=== PATIENT | female | born 1975 | race African-American/Black ===

== ENCOUNTER 2021-12-03 21:23 | Emergency (ER) | payer MEDICAID ==
[~2021-12-03] VITALS: Ht 170.2 cm; Wt 149.2 kg
[~2021-12-03 21:23] MED LIST: INSLANTI SC
[2021-12-04] MEDS ORDERED: LIDOCAINE 1%HCL (LOCAL ANESTH) 10 ML MDV ONE (04:51)
[2021-12-04 05:00] VITALS: BP 125/81
[2021-12-04] MEDS ORDERED: LIDOCAINE HCL 1 % PF INJ 2ML AMP IJ ONE (05:00)
== END 2021-12-04 05:30 | disposition home or self-care (01) ==
LOC: ER 21:23
DX: L02.212 Cutaneous abscess of back [any part, except buttock and flank] (principal); E11.9 Type 2 diabetes mellitus without complications; Z79.4 Long term (current) use of insulin
CPT/HCPCS: 10060; 87205; 99283; J2001; 87077; 87186

== ENCOUNTER 2022-01-15 01:36 | Emergency (ER) | payer MEDICAID ==
[~2022-01-15] VITALS: Ht 170.2 cm; Wt 144.7 kg
[2022-01-15] MEDS ORDERED: KETOROLAC TROMETH 60MG/2ML VIAL IM ONE (07:15)
[2022-01-15] MEDS ORDERED: HYDROcodone-ACET 5/325MG TAB PO ONE (08:00)
[2022-01-15 11:37] VITALS: BP 103/44
== END 2022-01-15 11:39 | disposition home or self-care (01) ==
LOC: EDBD 01:36 → ER 01:36 → EDUNIT# 01:36 → ER 11:38
DX: M54.6 Pain in thoracic spine (principal); R07.9 Chest pain, unspecified; M54.2 Cervicalgia; E11.9 Type 2 diabetes mellitus without complications; M79.18 Myalgia, other site; V43.62XA Car passenger injured in collision with other type car in traffic accident, initial encounter; Y93.89 Activity, other specified; Y92.488 Other paved roadways as the place of occurrence of the external cause; Y99.8 Other external cause status
CPT/HCPCS: 71046; 71120; 72040; 72170; 93005

== ENCOUNTER 2023-04-22 08:20 | Emergency (ER) | payer MEDICAID ==
[~2023-04-22] VITALS: Ht 170.2 cm; Wt 142.8 kg
[2023-04-22 10:02] VITALS: BP 136/67; RESP 20; TEMP 98.8; O2SAT 98
[2023-04-22 10:47] LABS: Alanine Aminotransferase 10 U/L (7-40); Albumin 4.1 g/dL (3.2-4.8); Alkaline Phosphatase 83 U/L (46-116); Anion Gap 8.6 (5-15); Aspartate Aminotransferase < 8 U/L (13-40); BUN/Creatinine Ratio 15.2 (10.0-20.0); Blood Urea Nitrogen 10 mg/dL (9-23); Calcium 8.8 mg/dL (8.5-10.1); Carbon Dioxide 25.4 mmol/L (20-30); Chloride 104 mmol/L (98-107); Glucose 299 mg/dL (74-106); Sodium 138 mmol/L (136-145)
[2023-04-22 10:48] LABS: Basophils # (auto) 0 10 ^3/uL (0-0.2); Bilirubin, Total 0.3 mg/dL (0.2-1.0); Eosinophils # (auto) 0.1 10 ^3/uL (0-0.8); Lymphocytes # (auto) 2.1 10 ^3/uL (0.4-5.4); Monocytes # (auto) 0.4 10 ^3/uL (0-1.3); Neutrophils # (auto) 2.9 10 ^3/uL (1.6-8.6); Red Cell Distribution Width 16.1 % (11.8-14.3); Total Protein 7.7 g/dL (5.7-8.2); White Blood Cell 5.6 10^3/uL (4.4-10.8)
[2023-04-22 10:50] LABS: Basophils % (auto) 0.7 % (0.0-2.0); Eosinophils % (auto) 2.1 % (0.0-7.0); Hemoglobin 9.6 g/dL (12.2-16.2); Mean Corpuscular Hemoglobin 23.8 pg (28.0-32.0); Mean Corpuscular Hgb Conc. 31.9 g/dL (32.0-36.0); Mean Corpuscular Volume 74.7 fL (80.0-100.0); Monocytes % (auto) 7.9 % (0.0-12.0); Neutrophils % (auto) 52.3 % (37.0-80.0); Red Blood Cells 4.02 10^6/uL (4.0-5.20)
[2023-04-22] MEDS ORDERED: CYCL-611 PO (12:36)
[2023-04-22] MEDS ORDERED: IBUP1TAB5 PO (12:36)
[2023-04-22 12:44] VITALS: PULSE 65
[2023-04-22] MEDS ORDERED: HYDROcodone-ACET 5/325MG TAB PO ONE (12:45)
== END 2023-04-22 13:03 | disposition home or self-care (01) ==
LOC: ER 08:20
DX: S46.912A Strain of unspecified muscle, fascia and tendon at shoulder and upper arm level, left arm, initial encounter (principal); E11.65 Type 2 diabetes mellitus with hyperglycemia; E11.9 Type 2 diabetes mellitus without complications; X58.XXXA Exposure to other specified factors, initial encounter; Y93.89 Activity, other specified; Y92.89 Other specified places as the place of occurrence of the external cause; Y99.8 Other external cause status
CPT/HCPCS: 36415; 80053; 84484; 85025; 93005; 93971